=== PATIENT | male | born 1970 | race Caucasian/White ===

== ENCOUNTER 2018-05-09 02:26 | Observation (INO) | payer OTHER ==
[2018-05-09] MEDS ORDERED: SODIUM CHLORIDE 1,000 ML IV STA (03:06)
[2018-05-09] MEDS ORDERED: ASPIRIN CHEWABLE PO STA (03:06)
[2018-05-09] MEDS ORDERED: NITROSTAT SL STA (03:06)
--- NOTE | 2018-05-09 03:08 | ED.PDOC ---
General ED Provider: Dr. FLAVIO COTTRELL Chief Complaint: Chest Pain Stated Complaint: I have had chest pain all day. I think I am having a heart attack. Patient admits to not taking his medications. He has a history of CAD with prior OH. Time Seen by Physician: 03:05 Mode of Arrival: Walk-In Information Source: Patient Exam Limitations: No limitations Nursing and Triage Documentation Reviewed and Agree: Yes Does patient meet sepsis criteria?: No If yes, has appropriate treatment been initiated?: No System Inflammatory Response Syndrome: Not Applicable Sepsis Protocol: For patient's 13 years and over: Temp is 96.8 and below OR 101 and greater Pulse >90 BPM Resp >20/minute Acutely Altered Mental Status Are patient's symptoms suggestive of a new infection, such as: -Pneumonia -Skin, Soft Tissue -Endocarditis -UTI -Bone, Joint Infection -Implantable Device -Acute Abdominal Infection -Wound Infection -Meningitis -Blood Stream Catheter Infection -Unknown Cardiovascular Complaint Exam - Chest Pain Complaint/Exam Onset: Gradual Duration: 1 days Symptoms Are: Still present Timing: Constant Initial Severity: Severe Current Severity: Moderate Location: Reports: Midsternal Pain Radiates: Reports: Right shoulder Character: Reports: Aching, Pressure Aggravating: Reports: Exertion, Movement Alleviating: Reports: None Associated Signs and Symptoms: Reports: Diaphoresis, Nausea Related History: Reports: Similar episode Related Surgical History: Reports: Cardiac Cath, PTCA/Stent AMI/ACS Risk Factors: Reports: None TAD Risk Factors: Reports: Hypertension, Smoking Prior Care for this Complaint: Yes Recent Stress Test: No Recent Echo/LV Function: No JVD Present: No Subcutaneous Emphysema Present: No Diminshed Breath Sounds: Yes Reproducible Chest Wall Pain: No Bilateral Pulses Present: No Unequal Pulses Noted: No If Risk Factors for AMI/ACS Consider: EKG, Cardiac Enzymes, Aspirin Pest Control Applicator Consulted: Yes Differential Diagnoses: Acute OH, ACS, Unstable Angina Quality Indicators For Acute OH or Cardiac Chest Pain: EKG in 10min., ASA if indicated Review of Systems - Review Of Systems Constitutional: Reports: Diaphoresis Eyes: Reports: No symptoms Ears, Nose, Mouth, Throat: Reports: No symptoms Respiratory: Reports: No symptoms Cardiac: Reports: Chest pain GI: Reports: No symptoms : Reports: No symptoms Musculoskeletal: Reports: No symptoms Skin: Reports: No symptoms Neurological: Reports: No symptoms Endocrine: Reports: No symptoms Hematologic/Lymphatic: Reports: No symptoms All Other Systems: Reviewed and Negative Past Medical History - Past Medical History Previously Healthy: Yes Endocrine: Reports: None Cardiovascular: Reports: CAD, OH, Hypertension Respiratory: Reports: COPD Hematological: Reports: None Gastrointestinal: Reports: GERD Genitourinary: Reports: None Neuro/Psych: Reports: Bipolar Disorder Musculoskeletal: Reports: Arthritis, Back Pain Cancer: Reports: None - Surgical History General Surgical History: Reports: Hernia Repair, Other (CARPAL TUNNEL, LEFT WRIST) - Family History Family History: Reports: Unknown - Social History Smoking Status: Current every day smoker, Heavy tobacco smoker Hx Substance Use: Yes (MEDICAL MARIJUANA/METHADONE/COCAINE IN THE PAST) Alcohol Screening: None - Immunizations Tetanus Shot up to Date: No Physical Exam - Physical Exam Appearance: Ill-appearing Ill-appearing: Moderate Pain Distress: Moderate Eyes: HOLA, EOMI, Conjunctiva clear Neck: Supple Respiratory: Airway patent Cardiovascular: RRR, Pulses normal, No rub, No murmur GI/: Soft, Nontender, No masses, Bowel sounds normal, No Organomegaly Musculoskeletal: Normal strength, ROM intact, No edema, No calf tenderness Skin: Warm, Dry, Normal color Neurological: Sensation intact, Motor intact, Reflexes intact, Cranial nerves intact, Alert, Oriented Psychiatric: Anxious Interpretation - Radiology Interpretation Radiology Interpretation By: ED Physician Radiology Results: Negative Exam Interpreted: Portable CXR - Capper Machine Operator Rate: Normal Rhythm: Sinus Ectopy: None - EKG Interpretation Time of EKG #1: 02:53 Rate: Normal Rhythm: Sinus Ectopy: None [place]: NL ST Segment: Normal Interpretation: normal sinsu with sinus Arrhythmia Physician Notification - Case Discussed Physician Notified: Dr Miles Time of Notification: 04:14 (admit to Hospital ) Critical Care Note - Critical Care Note Total Time (mins): 30 Course - Course Hematology/Chemistry: 05/09/18 03:20 05/09/18 03:20 Orders, Labs, Meds: Lab Review 05/09/18 05/09/18 03:20 03:20 WBC 8.52 RBC 4.97 Hgb 14.9 Hct 44.9 MCV 90.3 MCH 30.0 MCHC 33.2 RDW Coeff of Araceli 13.2 Plt Count 195 Immature Gran % (Auto) 0.2 Neut % (Auto) 56.3 Lymph % (Auto) 29.1 [place] % (Auto) 12.9 H Eos % (Auto) 1.5 Baso % (Auto) 0.0 Immature Gran # (Auto) 0.0 Neut # (Auto) 4.8 Lymph # (Auto) 2.5 [place] # (Auto) 1.1 Eos # (Auto) 0.1 Baso # (Auto) 0.0 Sodium 139 Potassium 4.0 Chloride 106 Carbon Dioxide 24 Anion Gap 13.0 BUN 21 H Creatinine 1.06 Estimated GFR (MDRD) 74.00 BUN/Creatinine Ratio 19.81 Glucose 108 H Calcium 8.7 Total Bilirubin 0.3 AST 25 ALT 25 Alkaline Phosphatase 72 Total Creatine Kinase 551 CK-MB (CK-2) 4.0 H CK-MB (CK-2) % 0.14904 Troponin I 0.0950 Total Protein 6.2 L Albumin 3.3 L Globulin 2.9 Albumin/Globulin Ratio 1.14 Orders Category Date Time Status EKG-(ED ONLY) Stat CARDIO 05/09/18 03:06 Completed EKG-(IP & OP ONLY) Routine CARDIO 05/09/18 07:00 Ordered ACTIVITY .Early Mobilization for VTE Prevention CARE 05/09/18 04:07 Ordered INTAKE & OUTPUT Q8HR CARE 05/09/18 04:03 Ordered VITAL SIGNS Q4HR CARE 05/09/18 04:07 Ordered CARDIAC DIET DIETARY 05/09/18 Breakfast Ordered ED DENTAL TECHNOLOGY ADVISOR APPLIED .ONCE EMERGENCY 05/09/18 03:06 Active ED IV/MEDIPORT/POWERPORT .ONCE EMERGENCY 05/09/18 03:06 Active BASIC METABOLIC PANEL DAILY@0600 LAB 05/09/18 06:00 Ordered BASIC METABOLIC PANEL DAILY@0600 LAB 05/10/18 06:00 Ordered CBC W/ AUTO DIFF DAILY@0600 LAB 05/09/18 06:00 Ordered CBC W/ AUTO DIFF DAILY@0600 LAB 05/10/18 06:00 Ordered CBC W/ AUTO DIFF Stat LAB 05/09/18 03:20 Completed COMPREHENSIVE METABOLIC PANEL Stat LAB 05/09/18 03:20 Results CREATINE KINASE Q8H LAB 05/09/18 10:15 Ordered CREATINE KINASE Q8H LAB 05/09/18 18:15 Ordered CREATINE KINASE Stat LAB 05/09/18 03:20 Results TROPONIN I Q8H LAB 05/09/18 10:15 Ordered TROPONIN I Q8H LAB 05/09/18 18:15 Ordered TROPONIN I Stat LAB 05/09/18 03:20 Results 0.9 % Sodium Chloride [Saline Flush] MEDS 05/09/18 03:06 Ordered 1 syr IVF PRN PRN Amlodipine Besylate [Norvasc] MEDS 05/09/18 09:00 Ordered 5 mg PO DAILY Aspirin [Aspirin Chewable] MEDS 05/09/18 03:06 Discontinued 324 mg PO ONCE STA Clopidogrel Bisulfate [Plavix] MEDS 05/09/18 09:00 Ordered 75 mg PO DAILY Enoxaparin Sodium [Lovenox] MEDS 05/09/18 09:00 Ordered 40 mg SUBCUT DAILY Isosorbide Mononitrate [Imdur] MEDS 05/09/18 09:00 Ordered 30 mg PO DAILY Morphine Sulfate [Morphine 2 mg/ml Syringe] MEDS 05/09/18 04:03 Ordered 2 mg IVP Q4H PRN Nitroglycerin [Nitrostat] MEDS 05/09/18 04:09 Ordered 0.4 mg SL DIRECTED PRN Nitroglycerin [Nitrostat] MEDS 05/09/18 03:06 Discontinued 0.4 mg SL ONCE STA Ondansetron HCl/Pf [Zofran 4 mg/2 ml] MEDS 05/09/18 04:03 Ordered 4 mg IVP Q6H PRN Sodium Chloride 0.9% [Sodium Chloride] 1,000 ml MEDS 05/09/18 03:06 Active IV 125 mls/hr RESUSCITATION STATUS Routine OTHERS 05/09/18 04:03 Ordered CHEST, 1V AP ONLY Stat RADS 05/09/18 03:06 Ordered Medications Generic Name Dose Route Start Last Admin Trade Name Freq PRN Reason Stop Dose Admin Amlodipine Besylate 5 mg 05/09/18 09:00 Norvasc PO DAILY RON Clopidogrel Bisulfate 75 mg 05/09/18 09:00 Plavix PO DAILY RON Enoxaparin Sodium 40 mg 05/09/18 09:00 Lovenox SUBCUT DAILY RON Sodium Chloride 1,000 mls @ 125 mls/hr 05/09/18 03:06 05/09/18 03:22 Sodium Chloride IV 05/09/18 11:05 125 mls/hr .Q8H STA Administration Isosorbide Mononitrate 30 mg 05/09/18 09:00 Imdur PO DAILY RON Morphine Sulfate 2 mg 05/09/18 04:03 Morphine 2 Mg/Ml Syringe IVP Q4H PRN Severe Pain Nitroglycerin 0.4 mg 05/09/18 04:09 Nitrostat SL DIRECTED PRN chest pain Ondansetron HCl 4 mg 05/09/18 04:03 Zofran 4 Mg/2 Ml IVP Q6H PRN Nausea / Vomiting Sodium Chloride 1 syr 05/09/18 03:06 05/09/18 03:22 Saline Flush IVF 1 syr PRN PRN Administration To flush IV Discontinued Medications Generic Name Dose Route Start Last Admin Trade Name Freq PRN Reason Stop Dose Admin Aspirin 324 mg 05/09/18 03:06 05/09/18 03:14 Aspirin Chewable PO 05/09/18 03:07 324 mg ONCE STA Administration Nitroglycerin 0.4 mg 05/09/18 03:06 05/09/18 03:14 Nitrostat SL 05/09/18 03:07 0.4 mg ONCE STA Administration Vital Signs: Temp Pulse Resp BP Pulse Ox 05/09/18 03:17 66 16 110/65 96 05/09/18 02:26 98.1 F 73 20 159/73 H 96 CARMENZA Risk Score Age >/= 65: No >/= 3 CAD Risk Factors: Yes Known CAD (Stenosis >/= 50%): Yes ASA Use in Past 7 Days: No Severe Angina (>/= 2 episodes in 24 hours): Yes EKG ST Changes >/= 0.5mm: No Postive Cardiac Marker: No CARMENZA Total Score: 3 CARMENZA Risk Score: Risk Score Odds of by 30D 0 0.1 (0.1-0.2) 1 0.3 (0.2-0.3) 2 0.4 (0.3-0.5) 3 0.7 (0.6-0.9) 4 1.2 (1.0-1.5) 5 2.2 (1.9-2.6) 6 3.0 (2.5-3.6) 7 4.8 (3.8-6.1) Departure - Departure Time of Disposition: 04:12 Disposition: PLACED OBSERVATION Discharge Problem: Chest pain Condition: Stable Pt referred to PMD for follow-up: Yes IPMP verified?: No Allergies/Adverse Reactions: Allergies No Known Drug Allergies Adverse Reaction (Verified 05/09/18 02:39) Home Medications: Ambulatory Orders Amlodipine Besylate 5 mg PO DAILY 05/09/18 Clopidogrel Bisulfate [Clopidogrel] 75 mg PO DAILY 05/09/18 Isosorbide Mononitrate [Imdur] 30 mg PO DAILY 05/09/18 Methadone HCl 260 mg PO DAILY 05/09/18 Nitroglycerin 0.4 mg SL DIRECTED PRN 05/09/18 Disposition Discussed With: Patient, Family
[2018-05-09 03:20] VITALS: BP 110/65
[2018-05-09] MEDS ORDERED: ZOFRAN 4 MG/2 ML IVP PRN (04:03)
[2018-05-09] MEDS ORDERED: MORPHINE 2 MG/ML SYRINGE IVP PRN (04:03)
[2018-05-09] MEDS ORDERED: NITROSTAT SL PRN (04:09)
[2018-05-09 04:52] VITALS: TEMP 98; BMI 24.5
--- NOTE | 2018-05-09 07:15 | DI ---
Exam: Single view of the chest. Comparison: 12/18/2017. Reason for exam: Chest pain. FINDINGS: No pneumothorax, pleural effusion, or focal consolidation. The cardiac silhouette is not enlarged. The imaged osseous structures appear grossly unremarkable without acute fracture. Changes are seen af ter spinal cord stimulator placement. IMPRESSION: Cardiopulmonary process.
[2018-05-09] MEDS ORDERED: IMDUR PO SCH (09:00)
[2018-05-09] MEDS ORDERED: ASPIRIN CHEWABLE PO SCH (09:00)
[2018-05-09] MEDS ORDERED: NORVASC PO SCH (09:00)
[2018-05-09] MEDS ORDERED: LOVENOX SUBCUT SCH (09:00)
[2018-05-09] MEDS ORDERED: PLAVIX PO SCH (09:00)
--- NOTE | 2018-05-10 15:24 | HP ---
DATE OF SERVICE: 05/09/18 CHIEF COMPLAINT: Midsternal chest pain HISTORY OF PRESENT ILLNESS: This is a 48 year old male with a history of coronary artery disease and history of angina came to the emergency room with chest pain, midsternal radiating to the left arm while driving, not stop hurting so he came to the emergency room for the evaluation. The patient was seen by Dr. Stover. EKG was normal sinus, first set of cardiac enzymes are negative. In review of previous history of coronary artery disease the patient was admitted for the observation to rule out acute coronary syndrome. REVIEW OF SYSTEMS: CONSTITUTIONAL: No fever, no chills. HEENT: Normal. ENDOCRINE: No weight gain; no weight loss. CVS: Chest pain. No PND, no orthopnea. Shortness of breath. No PND, no orthopnea. RESPIRATORY: No cough, no congestion. No hemoptysis. GI: No nausea, no vomiting. No abdominal pain. No melena. : No hematuria. No polyuria. MUSCULOSKELETAL: No joint swelling. Join pains. PSYCHIATRIC: Not anxious. No depression. No suicidal thoughts. No homicidal thoughts. SKIN: Intact, no open lesions. PAST MEDICAL HISTORY: Coronary artery disease Chest pain History of pancreatitis Osteoarthritis Substance use PAST SURGICAL HISTORY: Back spinal stimulator PERSONAL HISTORY: Substance use; marijuana, methadone and cocaine in the past. Nicotine use. and lives with the . FAMILY HISTORY: Coronary artery disease MEDICATIONS: Methadone Amlodipine Plavix Imdur Nitroglycerin ALLERGIES: No known drug allergies PHYSICAL EXAMINATION: V/S: Blood pressure 99/64, respiratory rate 20, heart rate 56, temperature 98.0 with saturation 96%. HEENT: Atraumatic, normocephalic. No scleral icterus. Pallor positive. Mucosa dry. NECK: Supple. No JVD, no bruit. No lymphadenopathy. No thyromegaly. HEART: S1, S2 normal. No murmur. No cyanosis or clubbing. No ascites. LUNGS: Clear to auscultation. No rales or rhonchi. ABDOMEN: Soft, nontender. Bowel sounds are active. No CVA tenderness. No rigidity or guarding. EXTREMITIES: No pedal edema. No cyanosis or clubbing MUSCULOSKELETAL: Normal joints, no swelling. NEUROLOGIC: The patient is SKIN: Intact; no open lesions. LYMPHATIC: No lymph nodes palpable. LABS: Sodium 139, potassium 4.0, chloride 106, bicarb 24, BUN 21, creatinine 1.06, glucose 108, WBC 8.52, hgb 13.9, hct 44.9, plt count 195. ASSESSMENT: 1. Chest pain rule out ACS 2. Coronary artery disease 3. Substance use 4. Chronic back pain PLAN: 1. Admit the patient for evaluation 2. Stress echo and echocardiogram 3. TSH and Lipids and A1c 4. Lifestyle modification TIME SPENT: MORE THAN 65 minutes MTDD
--- NOTE | 2018-05-10 15:26 | AMA ---
DATE OF SERVICE: 05/09/18 HISTORY: After the admission the nurse called me and says that the patient does not want to stay and he has some kind of urgent work and he has to leave. Did explain clearly that given his history of coronary artery disease and needing further evaluation for the problem the patient did not listen he just left AMA. Explained incase the patient is not feeling good he can always come back. TIME SPENT: More than 35 minutes. KEEGAN
== END 2018-05-09 09:25 | disposition left against medical advice (07) ==
LOC: ED 02:26 → MEDSURG A 04:09
PROVIDERS: ADMIT Emergency Medicine; ATTEND Emergency Medicine
DX: I25.10 Atherosclerotic heart disease of native coronary artery without angina pectoris (principal); I10 Essential (primary) hypertension; R61 Generalized hyperhidrosis; R11.0 Nausea; Z72.0 Tobacco use
CPT/HCPCS: 36415; 80048; 80053; 82550; 82553; 84443; 84484; 85025; 93005; 93010; 96360; 99284